=== PATIENT | male | born 1970 | race Caucasian/White ===

== ENCOUNTER → 2024-01-26 08:17 | Outpatient (REF) | payer OTHER, SELFPAY ==
[2024-01-26 12:30] LABS: % Basophils 0.5 % (0-2); % Eosinophils 1.7 % (0-6); % Immature Granulocytes 0.4 % (0-0.5); % Monocytes 9.4 % (1.7-9.3); Absolute Eosinophils 0.1 10^3/uL (0-0.7); Absolute Lymphocytes 1.4 10^3/uL (1.2-3.4); Absolute Monocytes 0.7 10^3/uL (0.1-0.6); Absolute Neutrophils 5.3 10^3/uL (1.4-6.5); Hematocrit 45.1 % (39.0-52.0); Hemoglobin 15.7 g/dL (13.0-18.0); Mean Corp Hgb Conc. 34.8 g/dL (33.0-37.0); Mean Corpuscular Hgb 31.3 pg (27.0-31.0); Mean Corpuscular Volume 89.8 fL (80.0-94.0); Mean Platelet Volume 9.9 fL (7.4-10.4); Nucleated Red Blood Cells % 0 % (-); Platelet Count 272 10^3/uL (130-400); Red Blood Cell Count 5.02 10^6/uL (4.70-6.10); Red Cell Dist. Width 12.3 % (11.5-14.5); White Blood Cell Count 7.6 10^3/uL (4.8-10.8)
[2024-01-26 13:27] LABS: ALT (SGPT) 21 U/L (0-50); AST (SGOT) 27 U/L (17-59); Albumin 4.6 g/dl (3.5-5.0); Alkaline Phosphatase 78 U/L (38-126); Blood Urea Nitrogen 17 mg/dl (9-20); Calcium 9.7 mg/dl (8.4-10.2); Carbon Dioxide 23 mmol/L (22-30); Chloride 107 mmol/L (98-107); Glucose 101 mg/dl (70-99); HDL Cholesterol 64 mg/dl; LDL Cholesterol, Calculated 105 mg/dl; Potassium 4.3 mmol/L (3.5-5.1); Sodium 136 mmol/L (135-145); Total Bilirubin 0.8 mg/dl (0.2-1.3); Total Cholesterol 190 mg/dl (50-199); Total Protein 7.2 g/dl (6.3-8.2); Triglyceride 107 mg/dl (10-149); Very Low Density Lipoprotein 21 mg/dl (0-30); eGFR > 60.00
== END ==
LOC: HWLAB 08:17
PROVIDERS: ATTENDING PHYSICIAN Nurse Practitioner Family
DX: Z00.00 Encounter for general adult medical examination without abnormal findings (principal)
CPT/HCPCS: 36415; 80053; 80061; 84443; 85025; G0103

== ENCOUNTER 2024-06-18 04:49 | Emergency (ER) | payer SELFPAY ==
[2024-06-18 04:50] VITALS: BMI 23.4
[2024-06-18 04:52] VITALS: BP 159/100
[2024-06-18 05:14] VITALS: BP 148/95
--- NOTE | 2024-06-18 05:33 | ED.GENMED ---
History of Present Illness
<Adina Faustin MD, Resident - Last Filed: 06/18/24 07:14>
General
Chief Complaint: Musculo-Skeletal Complaint
Source: patient and spouse
Time Seen by Provider: 06/18/24 04:56
History of Present Illness
History of Present Illness:
53-year-old male, Mr. José Manuel Colin with no significant past medical history presented to the ER reporting neck stiffness and pain that worsened with turning the neck to right. Patient woke up from bed approximately an hour ago to go to the
bathroom and reports that he was not able to turn his neck to the right. Patient also reports some heaviness and tingling in his arms bilaterally, tingling in his feet bilaterally, numbness in the lips.. He had a single episode of loose stool .
Patient reports having nausea since an hour ago but no vomiting. Patient also reports some lightheadedness on and off, no loss of consciousness, headaches, acute vision changes, fever/chills, chest pain, SOB, palpitations, abdominal pain, extremity
weakness, bladder/bowel incontinence. Patient reports having COVID 1 month ago.
Review of Systems
<Adina Faustin MD, Resident - Last Filed: 06/18/24 07:14>
Review of Systems
All Other Systems: ROS reviewed and negative except as documented in HPI and ROS
Phy Exam
<Adina Faustin MD, Resident - Last Filed: 06/18/24 07:14>
Physical Exam
Physical Exam:
GEN: Well appearing, NAD, WDWN
Eyes: PERRLA, EOMs intact, no scleral icterus
HENT: NCAT, oral mucosa moist, no JVD, no cervical adenopathy.
Lungs: CTAB, no wheezes, rales, rhonchi, normal chest wall excursion
Cardiac: S1-S2+, no M/R/G, no peripheral edema. Radial pulses 2+ bilat
Abdomen: S, NT, ND, NABS, no masses or hepatosplenomegaly
Neuro: AO x 3, no focal deficits to BUE/BLE, normal sensation throughout
Skin: No rashes, petechiae. Normal color, no pallor or jaundice.
Psych: Calm, cooperative, proper hygiene
Course
<Adina Faustin MD, Resident - Last Filed: 06/18/24 07:14>
Orders/Labs/Results
Orders:
Orders
06/18/24 04:58
EKG [Electrocardiogram (*1)] Urgent
Reason for Study: Chest Pain
06/18/24 04:59
EKG- Treatment ONCE
06/18/24 06:10
Vital Signs- Treatment ONCE
Frequency: Once
06/18/24 06:16
Complete Blood Count/With Diff Urgent
Comprehensive Metabolic Panel Urgent
Troponin I Urgent
Abnormal Lab Results
06/18/24
06:16
RBC 4.58 L 10^6/uL
(4.70-6.10)
MCH 31.2 H pg
(27.0-31.0)
Absolute Lymphs (auto) 1.1 L 10^3/uL
(1.2-3.4)
Lymphocytes % 19.8 L %
(20.5-51.1)
Monocytes % 9.8 H %
(1.7-9.3)
Creatinine 0.6 L mg/dL
(0.7-1.3)
Glucose 100 H mg/dl
(70-99)
06/18/24 06:16
06/18/24 06:16
Vital Signs
Initial and Last Documented VS:
Initial Vital Signs
Temp Pulse Resp BP Pulse Ox
97.4 F 82 16 159/100 97
06/18/24 04:52 06/18/24 04:52 06/18/24 04:52 06/18/24 04:52 06/18/24 04:52
Last Documented Vital Signs
Temp Pulse Resp BP Pulse Ox
97.4 F 58 10 148/95 98
06/18/24 04:52 06/18/24 07:00 06/18/24 07:00 06/18/24 06:50 06/18/24 07:00
<José Manuel Mckeon DO - Last Filed: 06/18/24 06:58>
Orders/Labs/Results
Orders:
Orders
06/18/24 04:58
EKG [Electrocardiogram (*1)] Urgent
Reason for Study: Chest Pain
06/18/24 04:59
EKG- Treatment ONCE
06/18/24 06:10
Vital Signs- Treatment ONCE
Frequency: Once
06/18/24 06:16
Complete Blood Count/With Diff Urgent
Comprehensive Metabolic Panel Urgent
Troponin I Urgent
Abnormal Lab Results
06/18/24
06:16
RBC 4.58 L 10^6/uL
(4.70-6.10)
MCH 31.2 H pg
(27.0-31.0)
Absolute Lymphs (auto) 1.1 L 10^3/uL
(1.2-3.4)
Lymphocytes % 19.8 L %
(20.5-51.1)
Monocytes % 9.8 H %
(1.7-9.3)
Creatinine 0.6 L mg/dL
(0.7-1.3)
Glucose 100 H mg/dl
(70-99)
06/18/24 06:16
06/18/24 06:16
Vital Signs
Blood pressure: 148/95
Initial and Last Documented VS:
Initial Vital Signs
Temp Pulse Resp BP Pulse Ox
97.4 F 82 16 159/100 97
06/18/24 04:52 06/18/24 04:52 06/18/24 04:52 06/18/24 04:52 06/18/24 04:52
Last Documented Vital Signs
Temp Pulse Resp BP Pulse Ox
97.4 F 58 10 148/95 98
06/18/24 04:52 06/18/24 07:00 06/18/24 07:00 06/18/24 06:50 06/18/24 07:00
<Adina Faustin MD, Resident - Last Filed: 06/18/24 07:14>
MDM/Problems Addressed
Differential Diagnosis Includes:
Neck muscle strain versus cervical degenerative disc disease.
MDM/Problems Addressed:
Neck pain, uncontrolled hypertension, arm heaviness
Patient's blood pressure at 159/100 at presentation.
CBC and CMP unremarkable
Troponin-<0.012
Blood pressure has dropped down to 148/95
Patient does not have any symptoms and clinically stable to be discharged.
<José Manuel Mckeon DO - Last Filed: 06/18/24 06:58>
MDM/Problems Addressed
MDM/Problems Addressed:
Neck pain, uncontrolled hypertension, arm heaviness
<José Manuel Mckeon DO - Last Filed: 06/18/24 06:58>
*Pulse Oximetry
Patient hypoxic: no
*EKG
Interpreted by ED Provider?: Yes
Interpretation: normal
Rate: normal
Rhythm: sinus
Har[place]ld: normal axis
Interval: normal interval
QRS Pattern: normal QRS
Ischemia: no ischemia
*[facility] Manager Interpretation
Rate: normal
Interpretation: normal
Rhythm: sinus
*Critical Care Note
Total Time (30-74mins, 75-104mins- exclusive of procedures): Not Applicable
Data Reviewed
Source: patient and spouse
<José Manuel Mckeon DO - Last Filed: 06/18/24 06:58>
Update Note
Update Note:
Troponin, EKG and labs unremarkable. Patient appears well. I do feel he is safe for discharge and outpatient follow-up. Question whether secondary symptoms were related to the pain he initially had when he woke up. No clinical special for ACS or
CVA.
ED Attending Note
<Adina Faustin MD, Resident - Last Filed: 06/18/24 07:14>
-
Portions of this chart may have been created with voice recognition software.� Occasional wrong word or��sound alike� substitutions may have occurred due to the inherent limitations of voice recognition software.
<José Manuel Mckeon DO - Last Filed: 06/18/24 06:58>
ED Attending Note
Patient seen and examined by attending physician: Yes
I performed a history and physical exam of patient and discussed management with resident, I reviewed resident's note and agree with documented findings and plan of care.: Yes
ED Attending Note:
53-year-old male who presents after he awoke with neck pain. He states he is not really sure how he was sleeping but noticed that he had this pain in his neck. Soon after that he went downstairs and got ibuprofen. He then just gave that 7 to have
some loose stools no his arms felt heavy. He then began to get a little bit nervous about it and awoke his to take him to the emergency department. On the way over he felt like something bad was going to happen. As his was driving he
started to call 911. Patient now feels much better. He does feel little bit of an abnormal sensation around his lips. He states during the event he did have some tingling his upper extremities and around his lips. Nothing unilateral. No
unilateral focal weakness. No vision changes. No trauma. Exam: No pronator drift, normal [id number], heart regular without murmur, blood pressure 148/95 on exam. Assessment and plan: Suspect the patient woke up with musculoskeletal neck pain
related to the way he was sleeping and that rest of his symptoms came secondary. However will rule out cardiac event and check troponin and labs. EKG is normal. Reassess after labs
Discharge Plan
Departure
Patient Disposition: Home (Routine Discharge)
Date of Disposition: 06/18/24
Time of Disposition: 06:57
Patient with high blood pressure during this ER visit?: Yes
Condition: Good
Discharge Problem:
Neck pain
Prescriptions:
No Action
No Current Medications
0
Referrals:
UNKNOWN - PT DOES,NOT KNOW [Family Provider] -
Activity Restrictions/Additional Instructions:
Advised to follow-up with her primary care within a week.
Report back to the ER with any worsening symptoms, i.e. neck pain, any chest pain, fever/chills, bladder/bowel incontinence.
Interventions
Interventions:
*Risk Screen - Suicide Last Done: 06/18/24 04:52
*Neglect/Abuse Screening Last Done: 06/18/24 04:52
Discharge Date and Time
Print Language: TRINIDADIAN
[2024-06-18 06:00] VITALS: BP 142/87
[2024-06-18 06:29] LABS: % Basophils 0.5 % (0-2); % Eosinophils 2.6 % (0-6); % Immature Granulocytes 0.5 % (0-0.5); % Lymphocytes 19.8 % (20.5-51.1); % Monocytes 9.8 % (1.7-9.3); % Neutrophils 66.8 % (42.2-75.2); Absolute Eosinophils 0.2 10^3/uL (0-0.7); Absolute Lymphocytes 1.1 10^3/uL (1.2-3.4); Absolute Monocytes 0.6 10^3/uL (0.1-0.6); Absolute Neutrophils 3.8 10^3/uL (1.4-6.5); Hematocrit 40.1 % (39.0-52.0); Hemoglobin 14.3 g/dL (13.0-18.0); Mean Corp Hgb Conc. 35.7 g/dL (33.0-37.0); Mean Corpuscular Hgb 31.2 pg (27.0-31.0); Mean Corpuscular Volume 87.6 fL (80.0-94.0); Mean Platelet Volume 9.4 fL (7.4-10.4); Nucleated Red Blood Cells % 0 % (-); Platelet Count 207 10^3/uL (130-400); Red Blood Cell Count 4.58 10^6/uL (4.70-6.10); Red Cell Dist. Width 12.3 % (11.5-14.5); White Blood Cell Count 5.7 10^3/uL (4.8-10.8)
[2024-06-18 06:43] LABS: ALT (SGPT) 19 U/L (0-50); AST (SGOT) 25 U/L (17-59); Albumin 4.1 g/dl (3.5-5.0); Alkaline Phosphatase 112 U/L (38-126); Blood Urea Nitrogen 19 mg/dl (9-20); Calcium 9.2 mg/dl (8.4-10.2); Carbon Dioxide 23 mmol/L (22-30); Chloride 106 mmol/L (98-107); Glucose 100 mg/dl (70-99); Potassium 3.9 mmol/L (3.5-5.1); Sodium 137 mmol/L (135-145); Total Bilirubin 0.5 mg/dl (0.2-1.3); Total Protein 6.3 g/dl (6.3-8.2); eGFR > 60.00
[2024-06-18 06:56] LABS: Troponin I < 0.012 ng/ml
[2024-06-18 07:17] VITALS: BP 148/95
== END 2024-06-18 07:18 | disposition home or self-care (01) ==
LOC: EMR 04:49
PROVIDERS: EMERGENCY PHYSICIAN Emergency Medicine
DX: M54.2 Cervicalgia (principal)
CPT/HCPCS: 99283; 80053; 84484; 85025; 93005

== ENCOUNTER → 2025-01-07 07:39 | Outpatient (REF) | payer OTHER, SELFPAY ==
[2025-01-07 08:41] LABS: % Basophils 0.5 % (0-2); % Immature Granulocytes 0.3 % (0-0.5); % Lymphocytes 15.8 % (20.5-51.1); % Monocytes 8.7 % (1.7-9.3); % Neutrophils 72.7 % (42.2-75.2); Absolute Eosinophils 0.2 10^3/uL (0-0.7); Absolute Lymphocytes 1.4 10^3/uL (1.2-3.4); Absolute Monocytes 0.8 10^3/uL (0.1-0.6); Absolute Neutrophils 6.3 10^3/uL (1.4-6.5); Hematocrit 44.9 % (39.0-52.0); Hemoglobin 15.3 g/dL (13.0-18.0); Mean Corp Hgb Conc. 34.1 g/dL (33.0-37.0); Mean Corpuscular Volume 91.1 fL (80.0-94.0); Mean Platelet Volume 9.3 fL (7.4-10.4); Nucleated Red Blood Cells % 0 % (-); Platelet Count 245 10^3/uL (130-400); Red Blood Cell Count 4.93 10^6/uL (4.70-6.10); Red Cell Dist. Width 12.3 % (11.5-14.5); White Blood Cell Count 8.7 10^3/uL (4.8-10.8)
[2025-01-07 09:08] LABS: ALT (SGPT) 22 U/L (0-50); AST (SGOT) 23 U/L (17-59); Albumin 4.4 g/dl (3.5-5.0); Alkaline Phosphatase 92 U/L (38-126); Blood Urea Nitrogen 15 mg/dl (9-20); Calcium 9.7 mg/dl (8.4-10.2); Carbon Dioxide 31 mmol/L (22-30); Chloride 103 mmol/L (98-107); Glucose 95 mg/dl (70-99); HDL Cholesterol 73 mg/dl; LDL Cholesterol, Calculated 102 mg/dl; Potassium 4.7 mmol/L (3.5-5.1); Sodium 140 mmol/L (135-145); Total Bilirubin 0.6 mg/dl (0.2-1.3); Total Cholesterol 191 mg/dl (50-199); Total Protein 6.9 g/dl (6.3-8.2); Triglyceride 81 mg/dl (10-149); Very Low Density Lipoprotein 16 mg/dl (0-30); eGFR > 60.00
[2025-01-07 09:31] LABS: PSA, Total - Screen 3.58 ng/ml (0.0-4.0); TSH 1.44 uIU/ml (0.47-4.68)
== END ==
LOC: REG 07:39
PROVIDERS: ATTENDING PHYSICIAN Family Medicine
DX: E78.2 Mixed hyperlipidemia (principal); Z00.00 Encounter for general adult medical examination without abnormal findings; Z12.5 Encounter for screening for malignant neoplasm of prostate
CPT/HCPCS: 36415; 80053; 80061; 84443; 85025; G0103